=== PATIENT | male | born 1960 | race Caucasian/White ===

== ENCOUNTER 2019-06-24 08:20 | Emergency (ER) | payer MEDICARE, MEDICAID, SELFPAY ==
[2019-06-24 08:36] VITALS: BP 170/108; PULSE 80; RESP 18; TEMP 36.8; O2SAT 94; BMI 24.3
--- NOTE | 2019-06-24 08:36 | ED_ITS ---
Entered by Naty Kruse, acting as scribe for HPI - Extremity Injury (Upper) General: Chief Complaint: Extremity Injury, Upper Stated Complaint: Left arm pain Time Seen by Provider: 06/24/19 08:34 Source: patient and family Mode of arrival: ambulatory Limitations: no limitations History of Present Illness: HPI narrative: 59 yo male presents with L arm swelling post fall 1 month ago. pt has had pain in the L elbow with movement. pt denies any other symptoms at this time or injury. MD complaint: injury to: left Onset (ago): month(s) (1 month ago post fall) Other Extremity Injury: Left: elbow and arm Other injuries: none Place: home Severity: moderate Relieving factors: none Exacerbating factors: movement of extremity Context: fall Review of Systems Const: Denies: fever or chills Eyes: Denies: change in vision ENMT: Denies: throat pain or mouth pain Card: Denies: chest pain Resp: Denies: shortness of breath GI: Denies: abdominal pain, nausea, vomiting or diarrhea Musc: Reports: joint pain and joint swelling; Denies: back pain Skin/Breast: Denies: rash Neuro: Denies: headache or behavioral changes Psych: Denies: depression Endo: Denies: excessive urination Michael/Lymph: Denies: easy bruising All/Imm: Denies: hives PFSH ED PFSH: Statuses (acute, chronic, etc) shown below reflect problem list status as previously entered and may not be historically accurate Social History Smoking and tobacco status: current every day smoker Physical Exam Const: COMMON NORMALS: no apparent distress and healthy appearing HENMT: COMMON NORMALS: normocephalic and external nose normal HEAD & SCALP: normocephalic NOSE: external nose normal and no nasal discharge (nasal dischage) Eye: COMMON NORMALS: PERRL PUPIL: Yes PERRL Neck/C-Spine: COMMON NORMALS: full ROM and no lymphadenopathy Chest: COMMONS NORMALS: inspection of chest normal Resp: COMMON NORMALS: normal respiratory effort and clear to auscultation bilaterally AUSCULTATION: clear to auscultation bilaterally Cardio: COMMON NORMALS: regular rate and regular rhythm RATE: regular rate RHYTHM: regular rhythm GI: COMMON NORMALS: soft to palpation PALPATION: Yes soft Extremity: COMMON NORMALS: full ROM and normal capillary refill NARRATIVE EXTREMITY EXAM: Swelling to left olecranon with no tenderness or warmth to touch Psych: COMMON NORMALS: mental status grossly normal and cooperative Skin: COMMON NORMALS: no rashes or lesions noted GENERAL SKIN EXAM: no rashes or lesions noted Course Vital Signs: Vital signs: Vital Signs Temperature 98.2 F 06/24/19 08:36 Pulse Rate 75 06/24/19 08:50 Respiratory Rate 18 06/24/19 08:36 Blood Pressure 170/108 06/24/19 08:36 Pulse Oximetry 94 06/24/19 08:36 MDM - Extremity Injury (Upper) MDM Narrative: Medical decision making narrative: Patient presents here with swelling to elbow joint with no tenderness or warmth to touch. Patient has full range of motion. Will Jeremy wrap and he is to follow-up with orthopedics. He is to return if worsening. Discharge Plan Discharge Patient Disposition: Home, Self-Care Clinical Impression: Elbow pain, left Condition: Stable Prescriptions: No Action naproxen 500 mg PO PRN RF: 0 Discharge Orders: Discharge Order (Routine); Ordered 06/24/19 Ordered By: Sohan Jaffe Referrals: Ashtyn York, SCHEDULING AGENT-C [Primary Care Provider] - Judy Aguirre MD [Physician] - Discharge Diet: Advance as tolerated Discharge Activity: Resume usual activity Coding Level of Care Code ED Clinical Safety Specialist for Chg Fwd The documentation recorded by the Uriah tolbert Bridget Annette, accurately reflects the service I personally performed and the decisions made by Alannah ortiz Korby, MD Jun 24, 2019 08:20
--- NOTE | 2019-06-24 08:36 | XRR_ITS ---
PROCEDURE INFORMATION: Exam: XR Left Elbow Exam date and time: 06/24/2019 8:37 AM Age: 59 years old Clinical indication: Pain; Elbow; Left; Patient HX: Swollen; Additional info: Injury TECHNIQUE: Imaging protocol: XR Left elbow. Views: 3 or more views. COMPARISON: No relevant prior studies available. FINDINGS: Bones/joints: There are mild degenerative changes at the humeral ulnar joint. There is no evidence of acute fracture or dislocation. Soft tissues: There is mild posterior olecranon soft tissue swelling. No radiopaque foreign body identified. No significant elbow joint effusion. XR/XR elbow LT min 3V* [id number] IMPRESSION: 1. No acute osseous findings. 2. Posterior olecranon soft tissue swelling without evidence of radiopaque foreign body. Findings are nonspecific and can be associated with bursitis, contusion or nonspecific edema. 3. Mild humeral ulnar degenerative change.
--- NOTE | 2019-06-24 08:48 | PC.NURSE ---
L elbow fall 1 month ago, elbow continues to swell. Pain with heavy lifting
[2019-06-24 08:50] VITALS: PULSE 75
[2019-06-24 09:05] VITALS: PULSE 79
[2019-06-24 09:10] VITALS: BP 123/98; PULSE 83; RESP 16; TEMP 36.6
--- NOTE | 2019-06-25 13:25 | DCPLANNER ---
manager meat had message to schedule a follow up appointment for patient with ortho. manager meat called the ortho clinic, spoke with Pat, gave clinic patients information. manager meat was told that patients information would be printed off and reviewed. Clinic will call case packer and sealer and patient with appointment information.
--- NOTE | 2019-06-26 10:57 | DCPLANNER ---
Pat from ortho called, informing employment evaluator/case manager that patient will need to follow up with primary care and patient is aware of this.
== END 2019-06-24 09:20 | disposition home or self-care (01) ==
PROVIDERS: Emergency Provider Emergency Medicine; Family Provider Nurse Practitioner; PCP Nurse Practitioner
DX: M25.522 Pain in left elbow (principal); F17.210 Nicotine dependence, cigarettes, uncomplicated
CPT/HCPCS: 73080; 99281

== ENCOUNTER → 2019-10-08 00:01 | Outpatient (BNVA) | payer MEDICARE, MEDICAID, SELFPAY | PROVIDERS: Family Provider Nurse Practitioner; PCP Family Medicine; Visit Provider Family Medicine | DX: M25.529 Pain in unspecified elbow (principal) | CPT/HCPCS: 84550 ==

== ENCOUNTER → 2019-10-31 09:56 | Outpatient (BNVA) | payer MEDICARE, MEDICAID, SELFPAY | PROVIDERS: Family Provider Nurse Practitioner; PCP Family Medicine; Visit Provider Orthopaedic Surgery | DX: M71.322 Other bursal cyst, left elbow (principal) | CPT/HCPCS: 73080 ==

== ENCOUNTER 2019-11-22 07:59 | Day surgery (SDC) | payer MEDICARE, MEDICAID, SELFPAY ==
[2019-11-21 12:13] VITALS: BMI 24.3
[2019-11-22] VITALS (8 sets, daily range): BP systolic 141–166; BP diastolic 96–117; PULSE 68–88; RESP 14–21; TEMP 36.5–36.7; O2SAT 92–99
--- NOTE | 2019-11-22 07:05 | P.OP_ITS ---
Operative Report Date of procedure: November 22, 2019 Pre-op Diagnosis: Left olecranon bursitis Post-op diagnosis: same Procedure Done: Resection left Olecranon bursa x 2 Specimens removed/disposition: Left olecranon bursa x 2 ( 1 larger and 1 smaller) Surgeon: Jones Sow Anesthesia: General Estimated blood loss (mL): 5 Tourniquet time (min): 40 (at 250 mmHg pressure) Complications: none Findings: during surgery we discovered the patient had one large noncommunicating olecran bursas Condition: stable Disposition: PACU Brief History: 59-year-old white male with persistent swelling and discomfort from a large left olecranon bursa. He was seen in the office and he wanted to have the bursa resected. X-rays showed no significant underlying bony spurring of the olecranon process of the affected elbow. Risks of surgery include aren't limited to recurrence of the bursitis, possible buttonholing through the skin as to excise the bursa. There can be wound healing complications such as development of a hematoma. To try to eliminate the possibility of a hematoma we will place a drain in his wound during the surgical procedure have him follow-up in the office after surgery to remove the drain and perform wound care. Morillo can include nerve/blood vessel/tendon injury. Medical complications can include infection, blood clots, heart attack, stroke risk up to including . All questions were answered patient agreeable to proceed with surgery. Procedure: 1.5 g Zinacef Patient identified. Surgical site was signed. Surgical permit was signed. The patient received 1.5 g of Zinacef intravenously for surgical prophylaxis. He was taken to the operating room. His placed supine on the operating room table. His placed under general anesthesia without difficulty. He was then sterilely prepped and draped usual fashion. A sterile tourniquet was applied. A timeout was performed. The operative limb was exsanguinated using Esmarch bandage tourniquet inflated to 250 mmHg pressure. I made an incision along the subcutaneousborder of the underlying proximal ulna and course the incision radially over the tip of the olecranon and then parotid longitudinally along the midline of the lower arm with a skin knife. With a second knife we then began to shell out the underlying olecranon bursa. Were able to excise the large bursa. Is then noted the patient had a smaller bursa distal to the larger bursa. This was excised using a second knife and is able to resect this off the underlying soft tissue. No bony spurring of the olecranon was noted intraoperatively. None had been noted on preoperative x-rays. Incision was irrigated with Betadine-containing saline solution and antibiotic containing saline solution. The skin was closed in layers with tiago on skin and replaced a Sherwood drain into the wound to allow drainage postoperatively to prevent hematoma. The incision was injected with 10 mL of a one-to-one mixture 1% lidocaine half percent Marcaine. Antibiotic was applied to the incision line followed by sterile dressings. The patient is placed in a elbow splint with the elbow at 90?. Once dressings were applied the tourniquet was deflated. The patient was aroused from general anesthesia. He was taken to recovery room. He tolerated surgery well. All counts were correct.
--- NOTE | 2019-11-22 07:07 | P.HPUD_ITS ---
Surgery/Procedure H&P Update DATE OF PROCEDURE: November 22, 2019 DATE H&P PERFORMED: 10/31/19 H&P UPDATE INFORMATION: I have reviewed H&P completed within last 30 days, I have examined patient prior to procedure, No changes to prior documentation and H&P is in [facility] EMR on date indicated PREOP DIAGNOSIS: Left olecranon bursitis PRIMARY INDICATION FOR PROCEDURE: symptomatic bursa PLANNED PROCEDURE: Operation Date: 11/22/19 09:40 Proposed Procedures p Excision of left elbow mass 65980 M71.322(Left) - Jones Sow DO
[2019-11-22] MEDS: sodium chloride 0.9% 1,000 ML 30 ML IV (08:21)
[2019-11-22] MEDS: ketorolac 30 mg/mL INJ IVP (08:26)
--- NOTE | 2019-11-22 08:39 | ANES.PREANE2 ---
Pre-Anesthetic Assessment Pre-Anesthetic Assessment: Height/Weight: Height 1.75 m Weight 74.843 kg Temp Pulse Resp BP Pulse Ox 97.7 F 82 18 157/105 94 11/22/19 08:12 11/22/19 08:12 11/22/19 08:12 11/22/19 08:12 11/22/19 08:12 Preop Diagnosis: left olecranon bursitis Proposed Procedure: Operation Date: 11/22/19 09:40 Proposed Procedures p Excision of left elbow mass 93111 M71.322(Left) - Jones Sow DO Last intake: Intake Last Liquid Date 11/22/19 Last Liquid Time 05:00 Last Solid Date 11/21/19 Last Solid Time 22:00 Social: Social History: Tobacco and No alcohol Exam: Pre-Anes Outpt Exam: alert, oriented x 3, clear to auscultation bilaterally and regular rate & rhythm Airway: Submandibular: WNL Cervical ROM: WNL MP: 1 Dentition: False (upper and lower) History/ROS: No significant history except as noted Pulmonary: Pulmonary: COPD and None reported CV/HEM: CV/HEM: None reported : : None reported Hepatic: Hepatic: None reported GI: GI: None reported Metabolic: Metabolic: None reported Musc/skel: Musc/skel: OA/DJD Neuropsych: Neuropsych: None reported Anesthetic Plan: ASA status: 2 Anesthesia: Anesthesia Evaluation, General and MAC Risk of > 500 ml blood loss (7ml/kg in children): No Meds/Allergies Current Medications: Current Medications Generic Name Dose Route Start Last Admin Trade Name Freq PRN Reason Stop Dose Admin Sodium Chloride 1,000 mls @ 30 ml s/hr 11/22/19 07:45 11/22/19 08:21 Sodium Chloride 0.9% IV 11/23/19 07:44 30 mls/hr .Q24H ARIANNE Administration PFSH Anesthesia PFSH: Medical History COPD (chronic obstructive pulmonary disease) with acute bronchitis Osteoarthritis of right shoulder Osteoarthritis of spine Pulmonary emphysema Seasonal allergic rhinitis Social History Smoking and tobacco status: current every day smoker cigarettes Packs smoked per day: 1 Alcohol intake: current Desire information about alcohol rehabilitation?: No Lives independently: Yes Household members: family Marital status: History of recent travel: No Data Anesthesia Cardiac Studies: No Data to Display
[2019-11-22] MEDS: cefUROXime 1,500 MG in sodium chloride 0.9% (plus) 50 ML 100 MG IV (09:00)
[2019-11-22] MEDS: neomycin-poly-bacitracin oint 28 gm 1 APPLIC TOPICAL (09:51)
[2019-11-22] MEDS: oxyCODONE-APAP 5-325 mg Tablet 1 TAB PO (11:06)
== END 2019-11-22 11:12 | disposition home or self-care (01) ==
PROVIDERS: PCP Family Medicine; Visit Provider Orthopaedic Surgery
PROC: (CPT 24105; principal; 2019-11-22 09:30)
DX: M71.322 Other bursal cyst, left elbow (principal); J44.9 Chronic obstructive pulmonary disease, unspecified; M19.011 Primary osteoarthritis, right shoulder; F17.210 Nicotine dependence, cigarettes, uncomplicated
CPT/HCPCS: 24105; 12345; 88304; 96365; 96374; J0131; J0697; J1580; J1885; J2001; J2704; J3010; J3490; J7030

== ENCOUNTER → 2020-07-07 11:26 | Outpatient (BNVA) | payer MEDICARE, MEDICAID, SELFPAY | PROVIDERS: PCP Family Medicine; Visit Provider Family Medicine | DX: M47.24 Other spondylosis with radiculopathy, thoracic region (principal); J44.0 Chronic obstructive pulmonary disease with (acute) lower respiratory infection; Z23 Encounter for immunization; J20.9 Acute bronchitis, unspecified; Z68.24 Body mass index [BMI] 24.0-24.9, adult; F17.210 Nicotine dependence, cigarettes, uncomplicated; Z71.89 Other specified counseling; Z13.29 Encounter for screening for other suspected endocrine disorder | CPT/HCPCS: 80053; 84443; 85025 ==

== ENCOUNTER → 2021-12-29 17:58 | Outpatient (BNVA) | payer MEDICARE, MEDICAID, SELFPAY | PROVIDERS: PCP Family Medicine; Visit Provider Family Medicine | DX: M19.011 Primary osteoarthritis, right shoulder (principal); J30.2 Other seasonal allergic rhinitis; M47.9 Spondylosis, unspecified; M25.512 Pain in left shoulder; J44.0 Chronic obstructive pulmonary disease with (acute) lower respiratory infection; J20.9 Acute bronchitis, unspecified; M19.90 Unspecified osteoarthritis, unspecified site | CPT/HCPCS: 73030 ==

== ENCOUNTER 2022-02-01 08:06 | Outpatient (CLI) | payer MEDICARE, MEDICAID, SELFPAY ==
--- NOTE | 2022-02-01 08:45 | MR_ITS ---
WS: [id number] MRI LEFT SHOULDER NONCONTRAST TECHNIQUE: Sagittal T2, coronal T1, T2 and proton density imaging. Axial gradient PDE imaging. CLINICAL INFORMATION: M25.512 - Pain in left shoulder COMPARISON: None. FINDINGS: Moderate degenerative arthritis AC joint with mild edema. Mild downsloping acromion. Mild narrowing o f the subacromial space. Normal supraspinatus. Insertional tear at the distal infraspinatus insertion . Infraspinatus is otherwise normal. Normal teres minor and subscapularis. Tendinopathy in the distal subscapularis. Medial subluxation of the biceps tendon from the bicipital groove proximally. Normal intra-articular biceps tendon. Normal biceps labral anchor. Glenoid labrum appears grossly normal. MR/MR shoulder LT wo con* [id number] IMPRESSION: 1. Moderate degenerative arthritis AC joint with mild edema. 2. Small insertional tear at the distal infraspinatus insertion. Tendinopathy within the subscapularis. Rotator cuff is otherwise normal. 3. Slight medial subluxation of the biceps tendon in the bicipital groove prox imally. Intra-articular biceps tendon appears intact. 4. No other acute findings.
== END 2022-02-01 08:07 | disposition home or self-care (01) ==
LOC: RAD 08:07
PROVIDERS: PCP Family Medicine; Visit Provider Family Medicine
DX: M19.012 Primary osteoarthritis, left shoulder (principal)
CPT/HCPCS: 73221

== ENCOUNTER → 2022-02-17 07:44 | Outpatient (BNVA) | payer MEDICARE, MEDICAID, SELFPAY | PROVIDERS: PCP Family Medicine; Referring Provider Family Medicine; Visit Provider Orthopaedic Surgery | DX: M75.112 Incomplete rotator cuff tear or rupture of left shoulder, not specified as traumatic (principal) | CPT/HCPCS: 99203; 99204 ==

== ENCOUNTER → 2022-11-02 13:32 | Outpatient (BNVA) | payer MEDICARE, MEDICAID, SELFPAY | PROVIDERS: PCP Family Medicine; Visit Provider Internal Medicine | DX: R07.9 Chest pain, unspecified (principal); R00.2 Palpitations | CPT/HCPCS: 93005; 93225; 99204 ==

== ENCOUNTER → 2023-10-26 10:08 | Outpatient (BNVA) | payer MEDICARE, MEDICAID, SELFPAY | PROVIDERS: PCP Family Medicine; Visit Provider Nurse Practitioner Family | DX: R05.9 Cough, unspecified (principal); I10 Essential (primary) hypertension | CPT/HCPCS: 71046; 80053; 80061; 82607; 84443; 85025 ==

== ENCOUNTER → 2023-11-21 09:09 | Outpatient (BNVA) | payer MEDICARE, MEDICAID, SELFPAY | PROVIDERS: PCP Family Medicine; Visit Provider Nurse Practitioner Family | DX: D75.1 Secondary polycythemia (principal) | CPT/HCPCS: 85025 ==

== ENCOUNTER 2023-11-22 09:00 | Outpatient (CLI) | payer MEDICARE, MEDICAID, SELFPAY | END 2023-11-22 09:01 | disposition home or self-care (01) | LOC: SLEEP 11:44 | PROVIDERS: PCP Family Medicine; Visit Provider Nurse Practitioner Family | DX: J44.9 Chronic obstructive pulmonary disease, unspecified (principal) | CPT/HCPCS: 94762 ==

== ENCOUNTER → 2024-01-03 09:25 | Outpatient (BNVA) | payer MEDICARE, MEDICAID, SELFPAY | PROVIDERS: PCP Family Medicine; Visit Provider Nurse Practitioner Family | DX: D75.1 Secondary polycythemia (principal) | CPT/HCPCS: 85025 ==

== ENCOUNTER 2024-01-27 08:30 | Oncology outpatient (recurring) (ONCR) | payer MEDICARE, MEDICAID, SELFPAY ==
[2024-01-25 16:32] LABS: Basophils # 0.1 10^3/uL (0.0-0.1); Basophils % 0.8 %; Eosinophils # 0.3 10^3/uL (0.0-0.8); Eosinophils % 2.7 %; Hematocrit 55.5 % (37-53); Lymphocytes # 2.7 10^3/uL (0.8-4.8); Lymphocytes % 25.8 %; Mean Corpuscular Hemoglobin 31.4 pg (27-33); Mean Corpuscular Volume 95.2 fl (82-101); Mean Platelet Volume 11.3 fL (7.4-10.4); Monocytes # 0.8 10^3/uL (0.2-0.9); Monocytes % 7.7 %; Neutrophils # 6.54 10^3/uL (1.8-7.7); Neutrophils % 62.6 %; Nucleated Red Blood Cells % 0 %; Platelet Count 227 10^3/cmm (157-399); Red Blood Count 5.83 10^6/uL (3.85-5.65); Red Cell Distribution Width 13.6 % (12.1-15.1); White Blood Count 10.43 10^3/uL (3.29-11.43)
[2024-01-25 16:53] LABS: Alanine Aminotransferase 13 U/L (0-41); Albumin Level 4.4 g/dL (3.5-5.2); Alkaline Phosphatase 127 U/L (40-130); Anion Gap 16.5 (5-19); Aspartate Amino Transferase 12 U/L (0-40); Blood Urea Nitrogen 10 mg/dL (8-23); Calcium 9.8 mg/dL (8.5-10.5); Carbon Dioxide 28 mmol/L (22-29); Chloride 101 mmol/L (98-107); Globulin 3.4 g/dL (1.3-4.6); Glomerular Filtration Rate 75.5 mL/min (90-130); Glucose 100 mg/dL (65-115); Lactate Dehydrogenase 154 U/L (135-225); Osmolality Calculated 291 mOsm/kg (285-295); Potassium 4.5 mmol/L (3.5-5.1); Sodium 141 mmol/L (136-145); Total Bilirubin 0.3 mg/dL (0.15-1.2); Total Protein 7.8 g/dL (6.6-8.7)
[2024-01-27 08:40] VITALS: BP 151/97; PULSE 87; RESP 16; TEMP 36.6; O2SAT 95
[2024-01-27 09:15] VITALS: BP 127/88; PULSE 90; RESP 16; TEMP 36.6; O2SAT 95
[2024-01-30 10:43] LABS: Erythropoietin 19.1 mIU/mL (2.6-18.5)
[2024-02-10 13:42] LABS: JAK2 V617 Specimen Source BLOOD
[2024-02-10 13:44] LABS: Specimen Source EDTA BLOOD
[2024-02-10 13:45] LABS: JAK2 V617 Mutation NOT DETECTED
[2024-02-10 13:51] LABS: JAK2 Exon 12 Mutation NOT DETECTED
== END 2024-02-18 23:55 | disposition home or self-care (01) ==
PROVIDERS: PCP Family Medicine; Visit Provider Internal Medicine Medical Oncology
DX: Z53.9 Procedure and treatment not carried out, unspecified reason (principal); D75.1 Secondary polycythemia; Z79.899 Other long term (current) drug therapy
CPT/HCPCS: 36415; 80053; 81270; 81279; 82668; 83615; 85025; 99195; 99205

== ENCOUNTER → 2024-05-28 13:15 | Outpatient (BNVA) | payer MEDICARE, MEDICAID, SELFPAY | PROVIDERS: Visit Provider Nurse Practitioner Family | DX: R20.2 Paresthesia of skin (principal); D75.1 Secondary polycythemia | CPT/HCPCS: 80053; 82607; 83735; 85025 ==

== ENCOUNTER 2024-06-04 11:09 | Oncology outpatient (recurring) (ONCR) | payer MEDICARE, MEDICAID, SELFPAY ==
[2024-06-04 12:12] VITALS: BP 158/92; PULSE 90; RESP 17; TEMP 36.6; O2SAT 94
== END 2024-06-19 23:59 | disposition home or self-care (01) ==
PROVIDERS: Visit Provider Internal Medicine Medical Oncology
DX: D75.1 Secondary polycythemia (principal); Z79.899 Other long term (current) drug therapy; F17.210 Nicotine dependence, cigarettes, uncomplicated
CPT/HCPCS: 99195; 99213

== ENCOUNTER 2025-01-26 09:30 | Inpatient (IN) | payer MEDICARE, MEDICAID, SELFPAY ==
[2025-01-26] VITALS (16 sets, daily range): BP systolic 143–180; BP diastolic 82–108; PULSE 78–105; RESP 16–30; TEMP 36.8; O2SAT 78–98; BMI 25.8
--- NOTE | 2025-01-26 09:32 | ECG_ITS ---
[facility] [employer] Test Date: 2025-01-26 Pat Name: Eligio Resendiz Department: Room: Gender: Male Table Tender: : 1960 Requested By: Trenton Wan Order Number: [id number] Desai MD: LARRY ISIDRO Measurements Intervals [place] Rate: 100 P: 70 FL: 124 QRS: 76 QRSD: 93 T: 94 QT: 315 QTc: 407 Interpretive Statements SINUS TACHYCARDIA POSSIBLE RIGHT ATRIAL ENLARGEMENT [0.25mV P-WAVE] LEFT ATRIAL ENLARGEMENT [-0.15mV P-WAVE IN V1/V2] Compared to ECG 11/02/2022 13:37:48 Sinus rhythm no longer present Electronically Signed On 01-29-2025 20:07:56 CDT by LARRY ISIDRO [email or web address]
--- OUTSIDE RECORDS SUMMARY | 2025-01-26 09:39 | XMS_ITS | Patient Health Record ---
Author Organization [facility] Address [address] [place], [place] [id number] Care Team Providers Care Staff Air Defense Officer Name Role Phone Ashtyn York APN Primary Care Provider Tadeo Worrell MD, [facility] [phone] Reason For Referral No Information Medications Medication SIG (Take, Route, Frequency, Duration) Notes Start Date End Date Status acetaminophen-hydrocodone Bitartrate 325 mg-7.5 mg 1 tab po orally BID prn pain Active gabapentin 300 mg 1 cap po orally QHS Active naproxen 500 mg 1 tab po orally BID prn pain; take with food Active acetaminophen-hydrocodone Bitartrate 325 mg-7.5 mg 1 tab po orally BID prn pain; Duration: 30 day(s) 11/15/2013 Active naproxen 500 mg 1 tab po orally BID prn pain; take with food; Duration: 30 day(s) Active Social History Tobacco Use: Social History Observation Description Date Details (start date - stop date) Current Smoker NA - NA Tobacco use: Question Answer Notes : current smoker Are you interested in quitting? Thinking about q uitting How many cigarettes a day do you smoke? 11-20 How often do you smoke cigarettes? every day How soon after you wake up d o you smoke your first cigarette? 6-30 min Problems Problem Type SNOMED Code ICD Code Onset Dates Problem Status W/U Status Risk Notes Problem Spasm (63857662) Muscle spasm (728.85) Active confirmed Problem Hypersomnia (50251074) Hypersomnia (780.54) Active confirmed Problem Closed fracture of lumbar vertebra without spinal cord injury (805.4) Active confirmed Problem Low back pain (666692995) Low back pain (724.2) Active confirmed Problem Displacement of lumbar intervertebral disc without myelopathy (26233434) Lumbar (w/out myelopathy) intervertebral disc disorder (722.10) Active confirmed Problem Spondylolisthesis (820569775) Spondylolisthesis (756.12) Active confirmed Problem Long-term drug therapy (993051700) LONG-TERM USE MEDS NEC (V58.69) Active confirmed r/o substance abuse Problem Lumbosacral spondylosis without myelopathy (52964778) Lumbosacral spondylosis without myelopathy (721.3) Active confirmed Plan Of Treatment No Information Insurance Providers Payer Name Payer Address Payer Phone Subscriber Number Group Number Insured Name Patient Relationship to Insured Coverage Start Date Coverage End Date [employer] Medicare Part B Claims Department [address] [address] [place] [address] [id number] Eligio Resendiz Self - patient is the insured [place] [address] [place] [address] [id number] Eligio Resendiz Self - patient is the insured Medical (General) History Medical History History ICD Code Rib pain, left Neck pain Right shoulder pain Low back pain Surgical History Surgery Date(Month/Year) Cervical fusion, C6-C7 10/08/1999 Hospitalization History Reason Date(Month/Year)
--- OUTSIDE RECORDS SUMMARY | 2025-01-26 09:39 | XMS_ITS | Clinical Summary ---
Author Organization [facility] Address [address] [place] [address] Phone Care Team Providers Care Guide Alpine Name Role Phone Unavailable Primary Care Provider Unavailabl e Allergies No known active allergies Medications PIROXICAM 20 mg Oral Cap Take 20 mg by mouth 3 times daily. Active CYCLOBENZAPRIN E 10 mg Oral Tab Take 10 mg by mouth see administration instructions. 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 Gender Identity Not on file Sexual Orientation Not on file Last Filed Vital Signs Vital Sign Reading Time Taken Comments Blood Pressure 139/82 10/01/2008 2:23 PM CDT Pulse 82 10/01/2008 2:23 PM CDT Temperature - - Respiratory Rate 24 10/01/2008 2:23 PM CDT Oxygen Saturation 95% 10/01/2008 2:23 PM CDT Inhaled Oxygen Concentration - - Weight 75.3 kg (166 lb) 10/01/2008 2:23 PM CDT Height 172.7 cm (5' 8 ) 10/01/2008 2:23 PM CDT Body Mass Index 25.24 10/01/2008 2:23 PM CDT Plan of Treatment Health Maintenance Due Date Last Done Comments DTAP/TDAP/TD VACCINES (1 - Tdap) 02/16/1979 COLORECTAL SCREENING 02/16/2005 Colorectal Cancer Screening 02/16/2005 FIT-DNA Q 3 years 02/16/2005 FIT/FOBT Q 1 year 02/16/2005 Flex Sig/CT Colonography Q 5 years 02/16/2005 ZOSTER VACCINE (1 of 2) 02/16/2010 INFLUENZA VACCINE (#1) 2025 RSV VACCINE (60+ or ) (1 - 1-dose 75+ series) 02/16/2035
--- NOTE | 2025-01-26 09:48 | XRR_ITS ---
PROCEDURE INFORMATION: Exam: XR Chest Exam date and time: 01/26/2025 9:54 AM Age: 64 years old Clinical indication: Shortness of breath; SOB; Labored breathing TECHNIQUE: Imaging protocol: Radiologic exam of the chest. Views: 1 view. COMPARISON: CR XR chest 2V* [id number] 10/26/2023 10:12 AM FINDINGS: Lungs: Pulmonary vessels are within normal limits. Right upper lung field calcified granuloma. Left lung is clear. Hyperinflation of both lung lara. Pleural spaces: No pneumothorax. Heart/Mediastinum: Cardiomediastinal silhouette is within normal limits. Bones/joints: Unremarkable. XR/XR chest 1V portable [id number] IMPRESSION: 1. No acute pulmonary finding. 2. Hyperinflation of both lung lara.
--- NOTE | 2025-01-26 09:53 | ED_ITS ---
HPI - Chest Pain 2 General: Chief Complaint: Chest Pain Stated Complaint: SOB CP Time Seen by Provider: 01/26/25 09:32 History of Present Illness: HPI: Patient with history of COPD on 2 and half liters at home all the time, presenting to the emergency department for worsening shortness of breath and chest pressure over the last week. Patient states that he is avoid coming to the doctor because he has to take care of his handicapped girlfriend at home. Describes shortness of breath is worsening throughout the night last night and this morning could not. He more so came into the emergency department. No fevers, sweats, chills. Patient has been seen last week for this and prescribed prednisone and an antibiotic (believes doxycycline is the name). REVIEW OF SYSTEMS: 10 systems reviewed and otherwise unrema rkable except for those noted in HPI. PHYSCIAL EXAM: Triage vital signs reviewed Gen: A&O NAD HEENT: NCAT, EOMI, not icteric. External ears normal. No rhinorrhea. Moist mucous membranes. Neck: Supple, full range of motion, no observable masses, No meningeal sign. Lungs: Conversational dyspnea to 2 words. Retractions, using supracostal muscles to breathe. Controlling secretions. Diminished breath sounds bilaterally. CV: Tachycardic, no edema. Patient has a run of multifocal atrial tachycardia in the room at a rate of 110 Abdomen: Soft, nondistended, No rebound tenderness. MSK: No joint swelling, no redness. Skin: No rashes, petechiae, lesions. Normal color per patient. Neuro: Normal Gait, Grossly intact. Psych: Appropriate for situation. PROCEDURES: EKG: Rate: Tachycardic Rhythm: Sinus Cable: Normal variant Intervals: Normal Ischemia: No STEMI criteria Related Data Home Medications ?Medication ?Instructions ?Recorded ?Confirmed doxycycline hyclate 100 mg capsule 100 mg PO BID 01/2601/26/25 prednisone 20 mg tablet 40 mg PO QAM 01/26/25 tiotropium bromide 2.5 2 puff inhalation DAILY PRN 01/26/25 01/26/25 mcg/actuation mist for inhalation Shortness Of Breath (Spiriva Respimat) Previous Rx's ?Medication ?Instructions ?Recorded aspirin 325 mg tablet 325 mg PO DAILY #90 tabs 05/12 oxygen 2L via NC with activity #1 ea 10/26/23 albuterol sulfate 90 mcg/actuation 2 inh inhalation Q6 H PRN shortness 05/16/24 aerosol inhaler of breath or wheezing #8.5 g bernard Allergies Allergy/AdvReac Type Severity Reaction Status Date / Time grass pollen Allergy Severe ALGY-Hives Verified 08/15/24 13:58 corn Allergy ALGY-Difficulty Verified 08/15/24 13:58 Breathing PFSH ED 2 PFSH: Medical History (Updated 01/26/25 @ 12:52 by Trenton Wan MD) COPD (chronic obstructive pulmonary disease) Enrolled in chronic care management Pulmonary emphysema Seasonal allergic rhinitis Osteoarthritis of right shoulder COPD (chronic obstructive pulmonary disease) with acute bronchitis Osteoarthritis of spine Surgical History Hx of cervical spine surgery Family History Father Heart disease Mother Heart disease Brother Heart disease Brother Renal cancer Social History Smoking and tobacco/nicotine status: never used tobacco/nicotine Second hand smoke exposure: Yes Alcohol intake: current Alcohol type: beer Substance/Drug Use: never Lives independently: Yes Household members: family Marital status: Current gender identity: Male Course 2 Vital Signs: Vital signs: Vital Signs Pulse Rate 82 01/26/25 13:04 Respiratory Rate 18 01/26/25 12:58 Blood Pressure 180/107 01/26/25 12:38 Pulse Oximetry 78 L 01/26/25 13:05 Oxygen Delivery Me thod Oxymask 01/26/25 12:58 Oxygen Flow Rate 6 01/26/25 13:05 MDM - Chest Pain Medical Decision Making MEDICAL DECISION MAKING: Differential diagnoses considered but not limited to: COPD exacerbation, ACS, pneumonia, pneumothorax, vascular TASV, compensatory tachypnea for systemic infection. Vitals nonactionable. Given history, examination, and pretest risk factors, patient already taking oral prednisone outpatient setting. Gave patient 125 Solu-Medrol and a DuoNeb in the emergency department while continuing evaluation. Initial EKG nonischemic. Patient is having runs of multifocal atrial tachycardia in the room and then normalizes to sinus rhythm with a rate less than 100. Maintaining rates in 90s. Provide 1 L fluid bolus. No previous ACS history but moderate risk by historical features. Pending cardiac rule out. Cardiac rule out completed with nonischemic EKGs done serially in the department and negative delta troponin. Patient failed ambulatory pulse oximetry at home oxygen requiring increasing to 6 L from his baseline 2.5 L. Will admit the patient to the hospitalist for further resuscitation and treatment. DISPO: Admit hospitalist Trenton Wan MD Staff physician, [facility] [place] Emergency Department [phone] Lab Data 01/26/25 09:35 01/26/25 09:35 Radiology Impressions Chest X-Ray 01/26/25 09:48 IMPRESSION: 1. No acute pulmonary finding. 2. Hyperinflation of both lung lara. Laboratory Results WBC 19.55 10^3/uL (3.29-11.43) H 01/26/25 09:35 RBC 5.71 10^6/uL (3.85-5.65) H 01/26/25 09:35 Hgb 18.10 g/dL (11.27-16.99) H 01/26/25 09:35 Hct 54.6 % (37-53) H 01/26/25 09:35 MCV 95.6 fl (82-101) 01/26/25 09:35 MCH 31.7 pg (27-33) 01/26/25 09:35 MCHC 33.2 g/dL (30-55) 01/26/25 09:35 RDW 14.3 % (12.1-15.1) 01/26/25 09:35 Plt Count 302 10^3/cmm (157-399) 01/26/25 09:35 MPV 11.3 fL (7.4-10.4) H 01/26/25 09:35 Neut % (Auto) 86.9 % 01/26/25 09:35 Lymph % (Auto) 7.8 % 01/26/25 09:35 Barton % (Auto) 3.2 % 01/26/25 09:35 Eos % (Auto) 0.0 % 01/26/25 09:35 Baso % (Auto) 0.5 % 01/26/25 09:35 Neut # (Auto) 16.99 10^3/uL (1.8-7.7) H 01/26/25 09:35 Lymph # (Auto) 1.5 10^3/uL (0.8-4.8) 01/26/25 09:35 Barton # (Auto) 0.6 10^3/uL (0.2-0.9) 01/26/25 09:35 Eos # (Auto) 0.0 10^3/uL (0.0-0.8) 01/26/25 09:35 Baso # (Auto) 0.1 10^3/uL (0.0-0.1) 01/26/25 09:35 Nucleated RBC % (auto) 0 % 01/26/25 09:35 Nucleated RBCs # 0.0 /100WBC 01/26/25 09:35 Sodium 146 mmol/L (136-145) H 01/26/25 09:35 Potassium 4.3 mmol/L (3.5-5.1) 01/26/25 09:35 Chloride 101 mmol/L (98-107) 01/26/25 09:35 Carbon Dioxide 33 mmol/L (22-29) H 01/26/25 09:35 Anion Gap 16.3 (5-19) 01/26/25 09:35 BUN 13 mg/dL (8-23) 01/26/25 09:35 Creatinine 0.8 mg/dL (0.7-1.2) 01/26/25 09:35 GFR Calculation 97.3 mL/min (90-130) 01/26/25 09:35 Glucose 155 mg/dL (65-115) H 01/26/25 09:35 Calculated Osmolality 305 mOsm/kg (285-295) H 01/26/25 09:35 Lactic Acid 1.4 mmol/L (0.5-2.2) 01/26/25 11:34 Calcium 9.8 mg/dL (8.5-10.5) 01/26/25 09:35 Total Bilirubin 0.3 mg/dL (0.15-1.2) 01/26/25 09:35 AST 9 U/L (0-40) 01/26/25 09:35 ALT 9 U/L (0-41) 01/26/25 09:35 Alkaline Phosphatase 130 U/L (40-130) 01/26/25 09:35 Troponin T Baseline 17 ng/L (0-15) H 01/26/25 09:35 Troponin T 120 Minute 15.80 ng/L (0-15) H 01/26/25 11:34 Delta Troponin T -1.20 ABS# (0-10) L 01/26/25 11:34 NT-Pro-B Natriuret Pep 390 pg/mL (0-125) H 01/26/25 09:35 Total Protein 7.0 g/dL (6.6-8.7) 01/26/25 09:35 Albumin 4.0 g/dL (3.5-5.2) 01/26/25 09:35 Globulin 3.0 g/dL (1.3-4.6) 01/26/25 09:35 Lipase 13 U/L (13-60) 01/26/25 09:35 All radiology interpretation(s) finalized by discharge Discharge Plan Discharge Patient Disposition: Placed in Observation Clinical Impression: Acute exacerbation of chronic obstructive pulmonary disease Discharge Diet: Advance as tolerated Discharge Activity: Resume usual activity Coding Level of Care Code ED Hospice Care Sales Consultant for Ev Willis
[2025-01-26 10:01] LABS: Hematocrit 54.6 % (37-53); Hemoglobin 18.10 g/dL (11.27-16.99); Mean Corpuscular HGB Conc 33.2 g/dL (30-55); Mean Corpuscular Hemoglobin 31.7 pg (27-33); Mean Corpuscular Volume 95.6 fl (82-101); Nucleated Red Blood Cells % 0 %; Platelet Count 302 10^3/cmm (157-399); Red Blood Count 5.71 10^6/uL (3.85-5.65); White Blood Count 19.55 10^3/uL (3.29-11.43)
[2025-01-26] MEDS: methylPREDNISolone sod succ 125 mg/2 mL INJ IVP (10:15)
[2025-01-26 10:17] LABS: Troponin(5th) Baseline 17 ng/L (0-15)
[2025-01-26 10:28] LABS: Alanine Aminotransferase 9 U/L (0-41); Albumin Level 4.0 g/dL (3.5-5.2); Alkaline Phosphatase 130 U/L (40-130); Anion Gap 16.3 (5-19); Aspartate Amino Transferase 9 U/L (0-40); Blood Urea Nitrogen 13 mg/dL (8-23); Calcium 9.8 mg/dL (8.5-10.5); Carbon Dioxide 33 mmol/L (22-29); Chloride 101 mmol/L (98-107); Creatinine Clr Calc Pharmacy 97.8653; Globulin 3.0 g/dL (1.3-4.6); Glucose 155 mg/dL (65-115); Lipase 13 U/L (13-60); NT Pro B Type Natriuretic Pept 390 pg/mL (0-125); Osmolality Calculated 305 mOsm/kg (285-295); Potassium 4.3 mmol/L (3.5-5.1); Sodium 146 mmol/L (136-145); Total Protein 7.0 g/dL (6.6-8.7)
--- NOTE | 2025-01-26 11:31 | ECG_ITS ---
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
[2025-01-26 12:01] LABS: Troponin 5 2HR 15.80 ng/L (0-15)
[2025-01-26 12:05] LABS: Troponin 5 2HR Delta -1.20 ABS# (0-10)
[2025-01-26 13:02] LABS: ABG PCO2 59.3 mmHg (35-45); ABG PH Result 7.39 (7.35-7.45); Alveolar-Arterial Oxygen Gradi 1.9 mmHg (5-10); Arterial Blood Gas Hematocrit 54.0 % (42-52); Blood Gas Allen Test Pos; Blood Gas LPM 2.5 %; Blood Gas Operator Identificat MONRO; Blood Gas Sample Site Radial, right; Blood Gas Sample Type Arterial; Carboxyhemoglobin 3.4 %THgb (0.4-20.1); Glucose Level-ABG 111.0 mg/dL (70-115); HCO3 ABG 35.7 mmol/L (22-26); Ionized Calcium Level - ABG 1.2 mmol/L (1.1-1.4); Methemoglobin 0.8 % (0.4-1.5); Oxygen Saturation ABG 91.5; PO2 ABG 63.4 mmHg (80.0-100.0); PO2 FiO2 Ratio Arterial Blood 3170; Potassium Level - ABG 3.8 mmol/L (3.5-5.0); Sodium Level - ABG 146.0 mmol/L (131-143)
[2025-01-26 13:04] LABS: Lactic Sepsis W/Reflex 1.4 mmol/L (0.5-2.2)
[2025-01-26 13:48] LABS: Magnesium 2.0 mg/dL (1.7-2.3)
[2025-01-26 13:55] LABS: Procalcitonin 0.03 ng/mL (0-0.5)
[2025-01-26] MEDS: cefTRIAXone 1,000 mg SDV 1000 MG IVP (13:57)
[2025-01-26 14:48] LABS: Lactic Sepsis W/Reflex 1.0 mmol/L (0.5-2.2)
--- NOTE | 2025-01-26 15:13 | PM.HP ---
Providers/Chief Complaint Admitting Physician: Donta Jung MD Primary Care Provider: MATT Coronado Chief Complaint: SOB CP History of Present Illness Eligio Resendiz is a 64 year old male has a long smoking history. He has known COPD and nocturnal hypoxemia. 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 History of neuropathy and tingling secondary to polycythemia of the hand/arm and neck on and off. Came to the emergency department with shortness of breath not associate with exertion or any significant lower limb edema. No history of fever or chills increase in cough or sputum production. No orthopnea PND chest pain chest heaviness dizziness abdominal pain diarrhea or any skin rash. However he was on antibiotics from the last week and steroids for his COPD exacerbation that did not relieve until this admission that were sent to have him come to ER. The patient did not recall any recent vaccinations, travel or sick contacts Still actively smoking I have discussed the goals of life with the patient and he preferred to be DNR. Rest of the review of system unremarkable Review of Systems General: Reports: 10 or more systems reviewed and unremarkable except in HPI and below Resp: Reports: dyspnea and wheezing Medications/Allergies Home Medications ?Medication ?Instructions ?Recorded ?Confirmed ?Last Taken ?Type aspirin 325 mg tablet 325 mg PO DAILY #90 tabs 12/28/22 01/26/25 01/21/25 Rx oxygen 2L via NC with activity #1 ea 10/26/23 01/26/25 Unknown Rx albuterol sulfate 90 mcg/actuation 2 inh inhalation Q6H PRN shortness 05/16/24 01/26/25 01/26/25 Rx aerosol inhaler of breath or wheezing #8.5 grams doxycycline hyclate 100 mg capsule 100 mg PO BID 01/26/25 01/26/25 Unknown History prednisone 20 mg tablet 40 mg PO QAM 01/26/25 01/26/25 Unknown History tiotropium bromide 2.5 2 puff inhalation DAILY PRN 01/26/25 01/26/25 Unknown History mcg/actuation mist for inhalation Shortness Of Breath (Spiriva Respimat) Allergies Allergy/AdvReac Type Severity Reaction Status Date / Time grass pollen Allergy Severe ALGY-Hives Verified 08/15/24 13:58 corn Allergy ALGY-Difficulty Verified 08/15/24 13:58 Breathing PFSH Acute PFSH: Medical History (Updated 01/26/25 @ 15:23 by Donta Jung MD) COPD (chronic obstructive pulmonary disease) Enrolled in chronic care management Pulmonary emphysema Seasonal allergic rhinitis Osteoarthritis of right shoulder COPD (chronic obstructive pulmonary disease) with acute bronchitis Osteoarthritis of spine Surgical History Hx of cervical spine surgery Family History Father Heart disease Mother Heart disease Brother Heart disease Brother Renal cancer Social History Smoking and tobacco/nicotine status: never used tobacco/nicotine Second hand smoke exposure: Yes Alcohol intake: current Alcohol type: beer Substance/Drug Use: never Lives independently: Yes Household members: family Marital status: Current gender identity: Male Vitals/I&O/Wt Last Vital Signs Pulse 82 01/26/25 14:05 Resp 18 01/26/25 12:58 BP 180/107 01/26/25 12:38 Pulse Ox 93 01/26/25 14:05 O2 Del Method Oxymask 01/26/25 12:58 O2 Flow Rate 6 01/26/25 13:05 FiO2 35 01/26/25 14:05 Weight last 48 hrs Weight 79.379 kg Physical Exam Narrative: General: Alert oriented x3, patient seen lying with mild respiratory distress with oxygen mask 6 L/min, able to complete full sentences. No use of accessory muscles or any intercostal recession or supraclavicular recessions HEENT: Normocephalic, atraumatic, EOMI, breathing with oxygen supplementation Cardio: Regular rate rhythm, normal S1-S2, no murmurs rubs gallops, JVD normal Respiratory: Bilateral equal entry with bilateral multiple diffuse wheezes and mild coarse crackles. No stridor or any evidence of half-strength breath sounds GI: Abdomen soft, nontender, nondistended, normoactive bowel sounds present all 4 quadrants, Neuro: Cranial nerves II to XII intact, strength 5/5, sensation 5/5, no gross neurological deficit Behavior: Appropriate and cooperative Extremities: Trace pedal edema Skin: Visible skin intact, no rashes Data 01/26/25 09:35 01/26/25 09:35 A&P Assessment and plan 1. Sepsis with acute hypercapnic respiratory failure without septic shock, due to unspecified organism: 2. Acute exacerbation of chronic obstructive pulmonary disease: 3. Polycythemia: 4. Chronic low back pain: 5. Hypertension: 6. Left shoulder pain: 7. Acute hypercapnic respiratory failure: 8. Acute hypoxemic respiratory failure: Plan: Eligio Resendiz is a 64 year old male has a long smoking history. He has known COPD and nocturnal hypoxemia. 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 - Sepsis workup, Blood cultures, lactate urine analysis and cultures -Considering patient hypoxemia and polycythemia, to rule out pulmonary embolism by CT angio and troponins -DuoNebs scheduled 4 hourly -Methylprednisolone 60 mg IV daily -Antibiotic coverage with azithromycin and ceftriaxone -Aspirin 325 mg daily for secondary polycythemia as per the previous oncology note -VTE prophylaxis with enoxaparin -Adequate analgesia -Oxygen supplementation protocol, an IV and repeat blood gas for resolution of hypercapnia and improvement of hypoxemia to follow PDMP PDMP Reviewed: Not Reviewed Attestations Medical Necessity Statement*: The patient will need more than 2 midnight stay for the management of his acute on chronic COPD exacerbation requiring oxygen supplementation and management of sepsis with further diagnostic workups Time Spent in Patient Care: Greater than 35 minutes (>than 50% of time spent in counselling and/or direct pt care on unit). Other Attestations: Patient condition has been discussed at length with the patient and the family, I have independently reviewed the chart labs imaging and diagnostics and EKG.? The patient has been informed about her current condition and further plan of care.? Agreed with the plan of care and understood without any language barrier. This documentation was created by [employer] stamp mounter software. Every effort was made to ensure accuracy of stamp mounter.? Any obvious errors or omissions should be clarified with the author of the document. Coding Level of Care Code 36169 Diagnoses Sepsis with acute hypercapnic respiratory failure without septic shock, due to unspecified organism A41.9; R65.20; J96.02 Sepsis type: sepsis due to unspecified organism Sepsis acute organ dysfunction status: with acute organ dysfunction Acute respiratory failure type: with hypercapnia Severe sepsis shock status: without septic shock Severe sepsis acute organ dysfunction type: acute respiratory failure Acute exacerbation of chronic obstructive pulmonary disease J44.1 Polycythemia D75.1 Chronic low back pain M54.50; G89.29 Hypertension I10 Left shoulder pain M25.512 Acute hypercapnic respiratory failure J96.02 Acute hypoxemic respiratory failure J96.01 Time Spent (min) 40
--- NOTE | 2025-01-26 15:24 | CTR_ITS ---
PROCEDURE INFORMATION: Exam: CTA Chest With Contrast Exam date and time: 01/26/2025 3:55 PM Age: 64 years old Clinical indication: Hyperventilation; Additional info: Acute hypxemic resp failure TECHNIQUE: Imaging protocol: Computed tomographic angiography of the chest with contrast. Exam focused on the arteries. 3D rendering (Not supervised by radiologist): MIP and/or 3D reconstructed images were created by the technologist. Radiation optimization: All CT scans at this facility use at least one of these dose optimization techniques: automated exposure control; mA and/or kV adjustment per patient size (includes targeted exams where dose is matched to clinical indication); or iterative reconstruction. Contrast material: OMNIPAQUE 350; Contrast volume: 72 ml; Contrast route: INTRAVENOUS (IV); COMPARISON: CR (CHEST, ) 01/26/2025 9:54 AM RADIATION DOSE METRICS: Total DLP (mGy-cm): 381.07 FINDINGS: Pulmonary arteries: No pulmonary embolism. Aorta: Mild calcified atherosclerotic changes are seen in the thoracic aorta. Lungs: Bronchiectasis is seen bilaterally. Mild emphysematous changes in the left upper lobe. Pleural spaces: Unremarkable. No pneumothorax. No pleural effusion. Heart: Unremarkable. No cardiomegaly. No pericardial effusion. Coronary arteries: Coronary calcifications are seen. Lymph nodes: Shotty mediastinal lymph nodes. Bones/joints: Chronic left-sided rib fracture posteriorly. Soft tissues: Unremarkable. Other findings: Scrub; Bilateral diffuse branching nodular lesions are seen. CT/CT angio chest PE protcl 63092 IMPRESSION: 1. No pulmonary embolism. 2. Bronchiectasis is seen bilaterally. 3. Bilateral diffuse branching nodular lesions are seen. Finding could represent small airway infection. Imaging follow-up is advised. 4. Mild emphysematous changes in the left upper lobe. 5. Coronary calcifications. 6. Mild calcified atherosclerotic changes are seen in the thoracic aorta. COMMENTS: The presence of pulmonary emphysema on CT is an independent risk factor for lung cancer. In the absence of a history or active diagnosis of lung cancer, it is recommended that this patient with emphysema be evaluated for enrollment in a low dose CT lung cancer screening program.
--- NOTE | 2025-01-26 15:25 | ECG_ITS ---
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 Measurements Intervals [place] Rate: 74 P: 65 [place]: 118 QRS: 75 QRSD: 92 T: 78 QT: 388 QTc: 432 Interpretive Statements SINUS RHYTHM WITH SHORT [place] INTERVAL WITH OCCASIONAL VENTRICULAR PREMATURE COMPLEXES POSSIBLE LEFT ATRIAL ENLARGEMENT [-0.1mV P-WAVE IN V1/V2] Compared to ECG 01/26/2025 11:31:58 Ventricular premature complex(es) now present Short [place] interval now present Electronically Signed On 01-29-2025 08:19:16 CDT by Bya Jordan M.D. [email or web address] [id number]
[2025-01-26] MEDS: iohexol 350 mg/mL 500 mL Btl (per mL) IV (16:06)
[2025-01-26 16:31] LABS: ABG PCO2 53.9 mmHg (35-45); ABG PH Result 7.41 (7.35-7.45); Alveolar-Arterial Oxygen Gradi 15.7 mmHg (5-10); Arterial Blood Gas Hematocrit 52.5 % (42-52); Blood Gas Allen Test Pos; Blood Gas LPM 2.5 %; Blood Gas Operator Identificat MONRO; Blood Gas Sample Site Radial, left; Blood Gas Sample Type Arterial; Carboxyhemoglobin 2.7 %THgb (0.4-20.1); Glucose Level-ABG 137.0 mg/dL (70-115); HCO3 ABG 34.1 mmol/L (22-26); Ionized Calcium Level - ABG 1.2 mmol/L (1.1-1.4); Methemoglobin 0.9 % (0.4-1.5); Oxygen Saturation ABG 89.2; PO2 ABG 56.0 mmHg (80.0-100.0); PO2 FiO2 Ratio Arterial Blood 164; Potassium Level - ABG 3.8 mmol/L (3.5-5.0); Sodium Level - ABG 145.0 mmol/L (131-143)
--- OUTSIDE RECORDS SUMMARY | 2025-01-26 17:03 | XMS_ITS | Clinical Summary ---
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
[2025-01-26 19:55] LABS: Glucose Urine UA Negative (Normal); Nitrate Urine Negative (Negative)
[2025-01-26 20:00] LABS: Add Urine Microscopic? YES
[2025-01-26 20:02] LABS: Specific Gravity, Urine 1.059 (1.005-1.030)
--- NOTE | 2025-01-26 21:25 | ECG_ITS ---
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1960 Requested By: Donta Jung Order Number: [id number] Reading MD: LARRY ISIDRO Measurements Intervals [place] Rate: 91 P: 45 [place]: 152 QRS: 78 QRSD: 146 T: 55 QT: 381 QTc: 469 Interpretive Statements SINUS RHYTHM RIGHT BUNDLE BRANCH BLOCK [120+ ms QRS DURATION, UPRIGHT V1, 40+ ms S IN I/aVL/V4/V5/V6] INTERPRETATION BASED ON A DEFAULT AGE OF 40 YEARS Compared to ECG 01/26/2025 15:50:52 Right bundle-branch block now present Ventricular premature complex(es) no longer present Short [place] interval no longer present Electronically Signed On 01-29-2025 20:08:31 CDT by LARRY ISIDRO [email or web address] [id number]
[2025-01-27] VITALS (17 sets, daily range): BP systolic 116–177; BP diastolic 69–109; PULSE 74–101; RESP 17–31; TEMP 36.7–37.1; O2SAT 89–97
[2025-01-27 02:34] LABS: Hematocrit 46.7 % (37-53); Hemoglobin 15.10 g/dL (11.27-16.99); Mean Corpuscular HGB Conc 32.3 g/dL (30-55); Mean Corpuscular Hemoglobin 30.6 pg (27-33); Mean Corpuscular Volume 94.5 fl (82-101); Nucleated Red Blood Cells % 0 %; Platelet Count 286 10^3/cmm (157-399); Red Blood Count 4.94 10^6/uL (3.85-5.65); White Blood Count 16.88 10^3/uL (3.29-11.43)
[2025-01-27 02:50] LABS: Lactic Sepsis W/Reflex 1.2 mmol/L (0.5-2.2)
[2025-01-27 02:51] LABS: Alanine Aminotransferase 8 U/L (0-41); Albumin Level 3.4 g/dL (3.5-5.2); Alkaline Phosphatase 106 U/L (40-130); Anion Gap 11.0 (5-19); Aspartate Amino Transferase 8 U/L (0-40); Blood Urea Nitrogen 17 mg/dL (8-23); Calcium 8.9 mg/dL (8.5-10.5); Carbon Dioxide 34 mmol/L (22-29); Chloride 105 mmol/L (98-107); Creatinine Clr Calc Pharmacy 86.9914; Globulin 2.6 g/dL (1.3-4.6); Glucose 107 mg/dL (65-115); Osmolality Calculated 304 mOsm/kg (285-295); Potassium 4.0 mmol/L (3.5-5.1); Sodium 146 mmol/L (136-145); Total Protein 6.0 g/dL (6.6-8.7)
--- NOTE | 2025-01-27 08:10 | P.PN_ITS ---
Subjective 2 Subjective: The patient was seen in the morning. He was on OxyMask with 4 L nasal cannula oxygen supplementation and saturating 94% and above. Patient is able to complete full sentences not looking in distress and not using any accessory muscles. Still wheezing while speaking however able to cooperate and oriented and alert to time place and person Vitals/I&O/Wt Last Vital Signs Temp 98.5 F 01/27/25 07:36 Pulse 86 01/27/25 07:36 Resp 30 H 01/27/25 07:36 BP 164/109 01/27/25 07:36 Pulse Ox 94 01/27/25 07:36 O2 Del Method Oxymask 01/27/25 07:36 O2 Flow Rate 4 01/27/25 07:36 FiO2 35 01/26/25 14:05 01/26/25 01/27/25 01/27/25 22:59 06:59 14:59 Intake Total 1500 / 1500 240 / 1740 Output Total 400 / 400 400 / 800 Balance 1100 / 1100 -160 / 940 Weight last 48 hrs Weight 79.742 kg Weight 79.379 kg Weight 79.379 kg Physical Exam 2 Narrative: General: Alert oriented x3, patient seen lying with without respiratory distress with oxygen mask for L/min, able to complete full sentences. The patient has a dusky appearance. No use of accessory muscles or any intercostal recession or supraclavicular recessions HEENT: Normocephalic, atraumatic, EOMI, breathing with oxygen supplementation Cardio: Regular rate rhythm, normal S1-S2, no murmurs rubs gallops, JVD normal Respiratory: Bilateral diffuse wheezes and mild crepitations. No stridor or any evidence of half-strength breath sounds GI: Abdomen soft, nontender, nondistended, normoactive bowel sounds present all 4 quadrants, Neuro: Cranial nerves II to XII intact, strength 5/5, sensation 5/5, no gross neurological deficit Behavior: Appropriate and cooperative Extremities: Trace pedal edema Skin: Visible skin intact, no rashes Data 01/27/25 01:50 01/27/25 01:50 Micro: Microbiology 01/26/25 17:04 Blood Culture - Preliminary Blood SPECIMEN COLLECTED 01/26/25 14:29 Blood Culture - Preliminary Blood SPECIMEN COLLECTED A&P Assessment and plan 1. Sepsis with acute hypercapnic respiratory failure without septic shock, due to unspecified organism: 2. Acute exacerbation of chronic obstructive pulmonary disease: 3. Polycythemia: 4. Chronic midline low back pain without sciatica: 5. Hypertension: 6. Left shoulder pain: 7. Acute hypercapnic respiratory failure: 8. Acute hypoxemic respiratory failure: Plan: Eligio Resendiz is a 64 year old male has a long smoking history. He has known COPD and nocturnal hypoxemia. 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 as PRISCILLA stat mutation analysis was negative in the past labs as of now: lactate repeat is better and no prelim blood cultures growth so far, CTA ruled out PE Plan: -DuoNebs scheduled 4 hourly with respiratory and albuterol every 2 hourly as needed -Methylprednisolone 60 mg iv daily for minimum 5 days and then to clinically reassess -stat ABG to monitor for hypercapnia as the patient is well compensated with normal PH and high bicarb -continue Antibiotic coverage with azithromycin for 3 days and ceftriaxone -Send for Legionella and respiratory viral panel -Sputum culture -Aspirin 325 mg daily for secondary polycythemia as per the previous oncology note -VTE prophylaxis with enoxaparin -Adequate analgesia -Oxygen supplementation protocol and NIV/BiPAP as needed for COPD exacerbation based on ABGs and patient clinical assessment, NIV/BiPAP standby PDMP PDMP Reviewed: Not Reviewed Attestations 2 Medical Necessity Statement*: Eligio Resendiz's hospital stay will require greater than 2 midnights for management of acute COPD exacerbation, acute hypoxemic and hypercapneic failure Time Spent in Patient Care: Greater than 35 minutes (>than 50% of time spent in counselling and/or direct pt care on unit) . Other Attestations: Patient condition has been discussed at length with the patient/family, I have independently reviewed the chart labs imaging and diagnostics and EKG. The patient/family has been informed about the current condition and further plan of care. Agreed with the plan of care and understood without any language barrier. This documentation was created by [email or web address] humanities and languages professor software. Every effort was made to ensure accuracy of humanities and languages professor. Any obvious errors or omissions should be clarified with the author of the document. Coding Level of Care Code 35826 Diagnoses Sepsis with acute hypercapnic respiratory failure without septic shock, due to unspecified organism A41.9; R65.20; J96.02 Acute respiratory failure type: with hypercapnia Sepsis acute organ dysfunction status: with acute organ dysfunction Sepsis type: sepsis due to unspecified organism Severe sepsis acute organ dysfunction type: acute respiratory failure Severe sepsis shock status: without septic shock Acute exacerbation of chronic obstructive pulmonary disease J44.1 Polycythemia D75.1 Chronic midline low back pain without sciatica M54.50; G89.29 Back pain laterality: midline Sciatica presence: without sciatica Hypertension I10 Left shoulder pain M25.512 Acute hypercapnic respiratory failure J96.02 Acute hypoxemic respiratory failure J96.01 Time Spent (min) 40
[2025-01-27] MEDS: methylPREDNISolone sod succ 40 mg/mL INJ IVP (09:14)
[2025-01-27 09:15] LABS: ABG PCO2 59.9 mmHg (35-45); ABG PH Result 7.39 (7.35-7.45); Alveolar-Arterial Oxygen Gradi 14.6 mmHg (5-10); Arterial Blood Gas Hematocrit 51.8 % (42-52); Blood Gas Allen Test Pos; Blood Gas LPM 4.0 %; Blood Gas Operator Identificat BROMA; Blood Gas Sample Site Radial, left; Blood Gas Sample Type Arterial; Carboxyhemoglobin 1.2 %THgb (0.4-20.1); Glucose Level-ABG 94.0 mg/dL (70-115); HCO3 ABG 36.2 mmol/L (22-26); Ionized Calcium Level - ABG 1.3 mmol/L (1.1-1.4); Methemoglobin 1.0 % (0.4-1.5); Oxygen Saturation ABG 94.2; PO2 ABG 72.6 mmHg (80.0-100.0); PO2 FiO2 Ratio Arterial Blood 201; Potassium Level - ABG 3.8 mmol/L (3.5-5.0); Sodium Level - ABG 145.0 mmol/L (131-143)
[2025-01-27] MEDS: cefTRIAXone 1,000 mg SDV 1000 MG IVP (13:02)
[2025-01-27] MEDS: methylPREDNISolone sod succ 125 mg/2 mL INJ 60 MG IVP (14:51)
[2025-01-27 15:09] LABS: Coronavirus 229E,HKU1,NL63,OC4 Not Detected (NOT DETECT); Parainfluenza Virus Type 1 Not Detected (NOT DETECT); Parainfluenza Virus Type 2 Not Detected (NOT DETECT); Parainfluenza Virus Type 3 Not Detected (NOT DETECT); Parainfluenza Virus Type 4 Not Detected (NOT DETECT); SARS-COV-2 Not Detected (NOT DETECT)
[2025-01-28 03:10] LABS: Hematocrit 49.1 % (37-53); Hemoglobin 16.00 g/dL (11.27-16.99); Mean Corpuscular HGB Conc 32.6 g/dL (30-55); Mean Corpuscular Hemoglobin 31.2 pg (27-33); Mean Corpuscular Volume 95.7 fl (82-101); Nucleated Red Blood Cells % 0 %; Platelet Count 254 10^3/cmm (157-399); Red Blood Count 5.13 10^6/uL (3.85-5.65); White Blood Count 16.85 10^3/uL (3.29-11.43)
[2025-01-28 03:30] LABS: Alanine Aminotransferase 10 U/L (0-41); Albumin Level 3.6 g/dL (3.5-5.2); Alkaline Phosphatase 97 U/L (40-130); Anion Gap 10.7 (5-19); Aspartate Amino Transferase 8 U/L (0-40); Blood Urea Nitrogen 17 mg/dL (8-23); Calcium 9.4 mg/dL (8.5-10.5); Carbon Dioxide 36 mmol/L (22-29); Chloride 101 mmol/L (98-107); Creatinine Clr Calc Pharmacy 98.0569; Globulin 2.8 g/dL (1.3-4.6); Glucose 122 mg/dL (65-115); Osmolality Calculated 299 mOsm/kg (285-295); Potassium 4.7 mmol/L (3.5-5.1); Sodium 143 mmol/L (136-145); Total Protein 6.4 g/dL (6.6-8.7)
[2025-01-28 04:00] VITALS: BP 137/85; PULSE 76; RESP 18; TEMP 36.6; O2SAT 94
[2025-01-28 05:28] VITALS: BMI 24.3
[2025-01-28 07:50] VITALS: BP 163/95; PULSE 83; RESP 22; TEMP 36.8; O2SAT 96
[2025-01-28 08:06] VITALS: PULSE 98; RESP 18; O2SAT 95
[2025-01-28 08:19] VITALS: PULSE 95
--- NOTE | 2025-01-28 08:48 | P.PN_ITS ---
Subjective 2 Subjective: The patient was seen in the morning. He was on OxyMask with 4 L nasal cannula oxygen supplementation and saturating 94% and above. Patient is able to complete full sentences not looking in distress and not using any accessory muscles. Still wheezing while speaking however able to cooperate and oriented and alert to time place and person Vitals/I&O/Wt Last Vital Signs Temp 98.2 F 01/28/25 07:50 Pulse 95 01/28/25 08:19 Resp 18 01/28/25 08:06 BP 163/95 01/28/25 07:50 Pulse Ox 95 01/28/25 08:06 O2 Del Method Nasal Cannula 01/28/25 08:06 O2 Flow Rate 4 01/28/25 08:06 FiO2 40 01/27/25 13:19 01/27/25 01/28/25 01/28/25 22:59 06:59 14:59 Intake Total 370 / 610 Output Total 650 / 2100 350 / 2450 Balance -280 / -1490 -350 / -1840 Weight last 48 hrs Weight 74.588 kg Weight 79.742 kg Weight 79.379 kg Weight 79.379 kg Physical Exam 2 Narrative: General: Alert oriented x3, patient seen lying with without respiratory distress with oxygen mask for L/min, able to complete full sentences. The patient has a dusky appearance. No use of accessory muscles or any intercostal recession or supraclavicular recessions HEENT: Normocephalic, atraumatic, EOMI, breathing with oxygen supplementation Cardio: Regular rate rhythm, normal S1-S2, no murmurs rubs gallops, JVD normal Respiratory: Bilateral diffuse wheezes and mild crepitations. No stridor or any evidence of half-strength breath sounds GI: Abdomen soft, nontender, nondistended, normoactive bowel sounds present all 4 quadrants, Neuro: Cranial nerves II to XII intact, strength 5/5, sensation 5/5, no gross neurological deficit Behavior: Appropriate and cooperative Extremities: Trace pedal edema Skin: Visible skin intact, no rashes Data 01/28/25 02:07 01/28/25 02:07 Micro: Microbiology 01/26/25 17:04 Blood Culture - Preliminary Blood NEGATIVE TO DATE 01/26/25 14:29 Blood Culture - Preliminary Blood NEGATIVE TO DATE A&P Assessment and plan 1. Sepsis with acute hypercapnic respiratory failure without septic shock, due to unspecified organism: 2. Acute exacerbation of chronic obstructive pulmonary disease: 3. Polycythemia: 4. Chronic midline low back pain without sciatica: 5. Hypertension: 6. Left shoulder pain: 7. Acute hypercapnic respiratory failure: 8. Acute hypoxemic respiratory failure: Plan: Eligio Resendiz is a 64 year old male has a long smoking history. He has known COPD and nocturnal hypoxemia. 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 as PRISCILLA stat mutation analysis was negative in the past labs as of now: lactate repeat is better and no prelim blood cultures growth so far, CTA ruled out PE found to have entero/rhinovirus infection Plan: -DuoNebs scheduled 4 hourly with respiratory and albuterol every 2 hourly as needed -Methylprednisolone 60 mg iv daily for minimum 5 days and then to clinically reassess -BIPAP as needed for decrease work of breathing -continue Antibiotic coverage with azithromycin for 3 days and ceftriaxone -Send for Legionella and respiratory viral panel -Aspirin 325 mg daily for secondary polycythemia as per the previous oncology note -VTE prophylaxis with enoxaparin -Adequate analgesia -Oxygen supplementation protocol and NIV/BiPAP as needed for COPD exacerbation based on ABGs and patient clinical assessment, NIV/BiPAP standby PDMP PDMP Reviewed: Not Reviewed Attestations 2 Medical Necessity Statement*: Eligio Resendiz's hospital stay will require greater than 2 midnights for management of his acute on chronic COPD exacerbation triggered by rhino virus infection, having polycythemia Time Spent in Patient Care: Greater than 35 minutes (>than 50% of time spent in counselling and/or direct pt care on unit) . 35 min Other Attestations: Patient condition has been discussed at length with the patient/family, I have independently reviewed the chart labs imaging and diagnostics and EKG. I have discussed the goals of care and code status with the patient/family/[facility]/legal representative phlebotomy services, and documented accordingly. The patient/family has been informed about the current condition and further plan of care. Agreed with the plan of care and understood without any language barrier. This documentation was created by [employer] packaging technician software. Every effort was made to ensure accuracy of packaging technician. Any obvious errors or omissions should be clarified with the author of the document. Coding Level of Care Code 62115 Diagnoses Sepsis with acute hypercapnic respiratory failure without septic shock, due to unspecified organism A41.9; R65.20; J96.02 Sepsis type: sepsis due to unspecified organism Sepsis acute organ dysfunction status: with acute organ dysfunction Severe sepsis acute organ dysfunction type: acute respiratory failure Acute respiratory failure type: with hypercapnia Severe sepsis shock status: without septic shock Acute exacerbation of chronic obstructive pulmonary disease J44.1 Polycythemia D75.1 Chronic midline low back pain without sciatica M54.50; G89.29 Back pain laterality: midline Sciatica presence: without sciatica Hypertension I10 Left shoulder pain M25.512 Acute hypercapnic respiratory failure J96.02 Acute hypoxemic respiratory failure J96.01
--- NOTE | 2025-01-28 09:41 | PC.SOCIAL ---
IMM Update Updated pt on IMM. No questions voiced. Provided pt a copy. Initialed, dated, & timed a copy & placed in chart.
[2025-01-28 11:32] VITALS: PULSE 93; RESP 18; O2SAT 94
--- NOTE | 2025-01-28 11:50 | PM.DCS ---
Discharge Providers Date of Admission: 01/26/25 13:23 Date of Discharge: January 28, 2025 Attending Provider at Admission: Donta Jung MD Attending Provider at Discharge: Donta Jung MD Primary Care Provider: MATT Coronado Diagnoses at Discharge Discharge Diagnosis 1. Sepsis with acute hypercapnic respiratory failure without septic shock, due to unspecified organism: 2. Acute exacerbation of chronic obstructive pulmonary disease: 3. Polycythemia: 4. Chronic midline low back pain without sciatica: 5. Hypertension: 6. Left shoulder pain: 7. Acute hypercapnic respiratory failure: 8. Acute hypoxemic respiratory failure: Reason for Visit Reason for Visit: SOB CP Brief History: Eligio Resendiz is a 64 year old male has a long smoking history. He has known COPD and nocturnal hypoxemia. 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 History of neuropathy and tingling secondary to polycythemia of the hand/arm and neck on and off. Came to the emergency department with shortness of breath not associate with exertion or any significant lower limb edema. No history of fever or chills increase in cough or sputum production. No orthopnea PND chest pain chest heaviness dizziness abdominal pain diarrhea or any skin rash. However he was on antibiotics from the last week and steroids for his COPD exacerbation that did not relieve until this admission that were sent to have him come to ER. The patient did not recall any recent vaccinations, travel or sick contacts Still actively smoking. Goals of life were also discussed and the patient CODE STATUS was documented at DNR as per the patient preference. Hospital Course Hospital Course During his hospital stay he was managed as a case of acute on chronic COPD as outpatient, polycythemia and hypertension. He was started on DuoNebs with antibiotic coverage. And respiratory PCR virus panel showed acute infection with entero-/rhinovirus. The patient was started on steroids as well and showed mild improvement. He also required BiPAP to wash of the CO2. His pH was well compensated and he did not deteriorate to the point of intubation. The patient blood pressure was being managed and monitored. Amlodipine and lisinopril was added however still was not optimized. The patient preferred to leave AMA. ?I explained to the patient that the recommended standard medical care inclusive of [e.g., hospitalization, medications, further diagnostic evaluation] carries potential benefits and risks. I also emphasized the potential consequences of premature self-discharge, including clinical deterioration, incomplete treatment, and risk of serious or life-threatening complications.? ?I reviewed available alternatives with the patient, including [e.g., continued observation, admission, outpatient follow-up, medication adherence], and underscored the reasons these would better support health outcomes.? ?The patient acknowledges understanding this discussion and nonetheless declines to continue with medical management at this time.? ?The patient acknowledges comprehension that leaving against medical advice may result in harm, including worsening of the condition and/or other adverse outcomes, and agrees to assume responsibility for that decision.? ?I offered a safe discharge plan, with instructions to seek urgent care if symptoms worsen or new symptoms arise.? ?I encouraged the patient to reconsider and expressed willingness to provide care if they change their mind.? The patient was discharged with short course steroids, antibiotics, nebulizations for COPD exacerbation and antihypertensive medication for uncontrolled blood pressure along with his home medications at home with referral to be followed as outpatient with the nurse practitioners for his condition postdischarge. Physical Exam Narrative: General: Alert oriented x3, patient seen lying with without respiratory distress with oxygen mask with 2-3 L/min, able to complete full sentences. The patient has a dusky appearance. No use of accessory muscles or any intercostal recession or supraclavicular recessions HEENT: Normocephalic, atraumatic, EOMI, breathing with oxygen supplementation Cardio: Regular rate rhythm, normal S1-S2, no murmurs rubs gallops, JVD normal Respiratory: Bilateral diffuse wheezes relatively better than yesterday and no crepitations found. No stridor or any evidence of half-strength breath sounds GI: Abdomen soft, nontender, nondistended, normoactive bowel sounds present all 4 quadrants, Neuro: Cranial nerves II to XII intact, strength 5/5, sensation 5/5, no gross neurological deficit Behavior: Appropriate and cooperative Extremities: Trace pedal edema Skin: Visible skin intact, no rashes Discharge Data Studies Completed and Pending Completed Studies During Hospitalization Category Date Time Status CTA chest [CT angio chest PE protcl [id number]] Stat Cat Scan 01/26/25 15:24 Completed XR chest 1V portable [id number] Stat Exams 01/26/25 09:48 Completed Pending at discharge Category Date Time Status Blood Culture Stat Lab 01/26/25 17:04 Results CBC Auto Diff [Complete Blood Count w/Auto] AM LABS Lab 01/29/25 04:00 Ordered CMP [Comprehensive Metabolic Panel] AM LABS Lab 01/29/25 04:00 Ordered Legionella Antibody Stat Lab 01/27/25 01:50 Received Radiology Impressions Chest X-Ray 01/26/25 09:48 IMPRESSION: 1. No acute pulmonary finding. 2. Hyperinflation of both lung lara. Chest CTA 01/26/25 15:24 IMPRESSION: 1. No pulmonary embolism. 2. Bronchiectasis is seen bilaterally. 3. Bilateral diffuse branching nodular lesions are seen. Finding could represent small airway infection. Imaging follow-up is advised. 4. Mild emphysematous changes in the left upper lobe. 5. Coronary calcifications. 6. Mild calcified atherosclerotic changes are seen in the thoracic aorta. COMMENTS: The presence of pulmonary emphysema on CT is an independent risk factor for lung cancer. In the absence of a history or active diagnosis of lung cancer, it is recommended that this patient with emphysema be evaluated for enrollment in a low dose CT lung cancer screening program. Laboratory Results WBC 16.85 10^3/uL (3.29-11.43) H 01/28/25 02:07 RBC 5.13 10^6/uL (3.85-5.65) 01/28/25 02:07 Hgb 16.00 g/dL (11.27-16.99) 01/28/25 02:07 Hct 49.1 % (37-53) 01/28/25 02:07 MCV 95.7 fl (82-101) 01/28/25 02:07 MCH 31.2 pg (27-33) 01/28/25 02:07 MCHC 32.6 g/dL (30-55) 01/28/25 02:07 RDW 14.5 % (12.1-15.1) 01/28/25 02:07 Plt Count 254 10^3/cmm (157-399) 01/28/25 02:07 MPV 11.5 fL (7.4-10.4) H 01/28/25 02:07 Neut % (Auto) 90.7 % 01/28/25 02:07 Lymph % (Auto) 4.7 % 01/28/25 02:07 [place] % (Auto) 3.3 % 01/28/25 02:07 Eos % (Auto) 0.0 % 01/28/25 02:07 Baso % (Auto) 0.2 % 01/28/25 02:07 Neut # (Auto) 15.27 10^3/uL (1.8-7.7) H 01/28/25 02:07 Lymph # (Auto) 0.8 10^3/uL (0.8-4.8) 01/28/25 02:07 [place] # (Auto) 0.6 10^3/uL (0.2-0.9) 01/28/25 02:07 Eos # (Auto) 0.0 10^3/uL (0.0-0.8) 01/28/25 02:07 Baso # (Auto) 0.0 10^3/uL (0.0-0.1) 01/28/25 02:07 Nucleated RBC % (auto) 0 % 01/28/25 02:07 Nucleated RBCs # 0.0 /100WBC 01/28/25 02:07 Specimen Type Arterial 01/27/25 09:00 Sample Site Radial, left 01/27/25 09:00 ABG pH 7.39 (7.35-7.45) 01/27/25 09:00 ABG pCO2 59.9 mmHg (35-45) H 01/27/25 09:00 ABG pO2 72.6 mmHg (80.0-100.0) L 01/27/25 09:00 ABG PO2/FiO2 Ratio 201 01/27/25 09:00 ABG HCO3 36.2 mmol/L (22-26) H 01/27/25 09:00 ABG O2 Saturation 94.2 01/27/25 09:00 ABG Base Excess 8.4 mmol/L (-2.0-2.0) H 01/27/25 09:00 [place] Test Pos 01/27/25 09:00 A-a O2 Gradient 14.6 mmHg (5-10) H 01/27/25 09:00 Hematocrit 51.8 % (42-52) 01/27/25 09:00 Hgb O2 Saturation 92.2 % (95-100) L 01/27/25 09:00 Carboxyhemoglobin 1.2 %THgb (0.4-20.1) 01/27/25 09:00 Methemoglobin 1.0 % (0.4-1.5) 01/27/25 09:00 Total Hemoglobin 16.9 g/dL (14-18) 01/27/25 09:00 Sodium 145.0 mmol/L (131-143) H 01/27/25 09:00 Potassium 3.8 mmol/L (3.5-5.0) 01/27/25 09:00 Glucose 94.0 mg/dL (70-115) 01/27/25 09:00 Ionized Calcium 1.3 mmol/L (1.1-1.4) 01/27/25 09:00 O2 Delivery Device Nc 01/27/25 09:00 O2 Liters/Min 4.0 % 01/27/25 09:00 FiO2 36.0 % 01/27/25 09:00 Trimming Inspector ID [place] 01/27/25 09:00 Sodium 143 mmol/L (136-145) 01/28/25 02:07 Potassium 4.7 mmol/L (3.5-5.1) 01/28/25 02:07 Chloride 101 mmol/L (98-107) 01/28/25 02:07 Carbon Dioxide 36 mmol/L (22-29) H 01/28/25 02:07 Anion Gap 10.7 (5-19) 01/28/25 02:07 BUN 17 mg/dL (8-23) 01/28/25 02:07 Creatinine 0.8 mg/dL (0.7-1.2) 01/28/25 02:07 GFR Calculation 97.3 mL/min (90-130) 01/28/25 02:07 Glucose 122 mg/dL (65-115) H 01/28/25 02:07 Calculated Osmolality 299 mOsm/kg (285-295) H 01/28/25 02:07 Lactic Acid 1.2 mmol/L (0.5-2.2) 01/27/25 01:50 Calcium 9.4 mg/dL (8.5-10.5) 01/28/25 02:07 Magnesium 2.0 mg/dL (1.7-2.3) 01/26/25 11:34 Total Bilirubin 0.2 mg/dL (0.15-1.2) 01/28/25 02:07 AST 8 U/L (0-40) 01/28/25 02:07 ALT 10 U/L (0-41) 01/28/25 02:07 Alkaline Phosphatase 97 U/L (40-130) 01/28/25 02:07 Troponin T Baseline 17 ng/L (0-15) H 01/26/25 09:35 Troponin T 120 Minute 15.80 ng/L (0-15) H 01/26/25 11:34 Delta Troponin T -1.20 ABS# (0-10) L 01/26/25 11:34 NT-Pro-B Natriuret Pep 390 pg/mL (0-125) H 01/26/25 09:35 Total Protein 6.4 g/dL (6.6-8.7) L 01/28/25 02:07 Albumin 3.6 g/dL (3.5-5.2) 01/28/25 02:07 Globulin 2.8 g/dL (1.3-4.6) 01/28/25 02:07 Lipase 13 U/L (13-60) 01/26/25 09:35 Procalcitonin 0.03 ng/mL (0-0.5) 01/26/25 11:34 Urine Color Yellow (Yellow) 01/26/25 19:45 Urine Appearance Clear (CLEAR) 01/26/25 19:45 Urine pH 5.0 (5-7) 01/26/25 19:45 Ur Specific [place] 1.059 (1.005-1.030) H 01/26/25 19:45 Urine Protein Negative (Negative) 01/26/25 19:45 Urine Glucose (UA) Negative (Normal) 01/26/25 19:45 Urine Ketones Negative (Negative) 01/26/25 19:45 Urine Blood Negative (Negative) 01/26/25 19:45 Urine Nitrate Negative (Negative) 01/26/25 19:45 Urine Bilirubin Negative (Negative) 01/26/25 19:45 Urine Urobilinogen 1.0 mg/dL (Negative) 01/26/25 19:45 Ur Leukocyte Esterase Negative (Negative) 01/26/25 19:45 Urine RBC 0-2 /hpf (0-2) 01/26/25 19:45 Urine WBC 0-5 /hpf (0-5) 01/26/25 19:45 Ur Squamous Epith Cells 0-5 /hpf (0-5) 01/26/25 19:45 Amorphous Sediment Not Reportable 01/26/25 19:45 Urine Bacteria None seen /hpf (NONE) 01/26/25 19:45 Hyaline Casts 0-4 /lpf H 01/26/25 19:45 Adenovirus (PCR) Not detected (NOT DETECT) 01/27/25 12:45 C. pneumoniae DNA (PCR) Not detected (NOT DETECT) 01/27/25 12:45 Coronavirus 229E (PCR) Not detected (NOT DETECT) 01/27/25 12:45 Human Metapneumovir PCR Not detected (NOT DETECT) 01/27/25 12:45 Influenza A (H1) PCR Not detected (NOT DETECT) 01/27/25 12:45 Influ A (H1/09) PCR Not detected (NOT DETECT) 01/27/25 12:45 Influenza A (H3) PCR Not detected (NOT DETECT) 01/27/25 12:45 Influenza Type A (PCR) Not detected (NOT DETECT) 01/27/25 12:45 Influenza Type B (PCR) Not detected (NOT DETECT) 01/27/25 12:45 M. pneumoniae (PCR) Not detected (NOT DETECT) 01/27/25 12:45 Parainfluenza 1 (PCR) Not detected (NOT DETECT) 01/27/25 12:45 Parainfluenza 2 (PCR) Not detected (NOT DETECT) 01/27/25 12:45 Parainfluenza 3 (PCR) Not detected (NOT DETECT) 01/27/25 12:45 Parainfluenza 4 (PCR) Not detected (NOT DETECT) 01/27/25 12:45 RSV Type A (PCR) Not detected (NOT DETECT) 01/27/25 12:45 RSV Type B (PCR) Not detected (NOT DETECT) 01/27/25 12:45 Entero/Rhino (PCR) Detected (NOT DETECT) A 01/27/25 12:45 SARS-CoV-2 (PCR) Not detected (NOT DETECT) 01/27/25 12:45 Vitals Last Vital Signs Temp 98.2 F 01/28/25 07:50 Pulse 93 01/28/25 11:32 Resp 18 01/28/25 11:32 BP 163/95 01/28/25 07:50 Pulse Ox 94 01/28/25 11:32 O2 Del Method Nasal Cannula 01/28/25 11:32 O2 Flow Rate 4 01/28/25 11:32 FiO2 40 01/27/25 13:19 Discharge Plan Discharge Patient Disposition: Home Condition: Stable Prescriptions: New alum-mag hydroxide-simeth [Mag-Al Plus] 200-200-20 mg/5 mL Suspension 15 ml PO Q6H PRN (Reason: Indigestion) 120 Days Qty: 5 0RF amlodipine [Norvasc] 10 mg tablet 10 mg PO DAILY 120 Days Qty: 120 0RF lisinopril 5 mg Tablet 5 mg PO BEDTIME 120 Days Qty: 120 0RF levofloxacin 750 mg tablet 750 mg PO DAILY 5 Days Qty: 5 0RF prednisone 20 mg tablet 40 mg PO DAILY 5 Days Qty: 10 0RF Mucinex Cold,Flu,Sore Throat 10-20-650 mg/20 mL liquid 5 ml PO QID PRN (Reason: cough) 10 Days Qty: 180 0RF Continued (DME) oxygen 2L via NC with activity See Rx Instructions .Route .MEDSUPPLY Qty: 1 0RF Rx Instructions: As directed aspirin 325 mg tablet 325 mg PO DAILY Qty: 90 3RF albuterol sulfate 90 mcg/actuation HFA aerosol inhaler 2 inh inhalation Q6H PRN (Reason: shortness of breath or wheezing) Qty: 8.5 5RF Spiriva Respimat 2.5 mcg/actuation mist 2 puff inhalation DAILY PRN (Reason: Shortness Of Breath) Discontinued doxycycline hyclate 100 mg capsule 100 mg PO BID prednisone 20 mg tablet 40 mg PO QAM Discharge Order = DC NOW: Discharge Order (Routine); Ordered 01/28/25 Ordered By: Dotna Jung Other Ambulatory Orders: DME: Oxygen (Order) Location: None Selected Ordered By: Donta Jung Referrals: [facility] [Outside] Alessia Bear MD [Physician, Pulmonology] Tiff Kathleen FNP [Primary Care Provider, Family Practice] - 02/05/25 11:40 am Referral Note: Discharge Diet: Advance as tolerated Discharge Activity: Resume usual activity Patient Instructions: Lisinopril (By mouth), Prednisone (By mouth), Amlodipine (By mouth) (Hypertenipine-2.5, Norvasc, Norliqva), Levofloxacin (By mouth) (Levaquin, Levaquin Leva-darin), Aluminum, Magnesium, and Simethicone Antacid (By mouth) (Almacone,..., COPD (Chronic Obstructive Pulmonary Disease) (DC), Sepsis (DC), COPD Stoplight, Opioid Safety, Patient Portal & Qian Instructions Patient's Health Concerns: After thorough counseling of the patient condition and the risk and benefits of the treatment. The patient preferred to leave AMA. All the management plan and further risk of leaving was discussed with risks and benefits and future complications without deterioration and worsening of his symptoms leading to fatal events like arrhythmia or respiratory distress cardiac arrest or even . The patient understands each and every aspect of leaving AMA and understands without any language barrier. Alternative measures has been also discussed with the patient of staying and continue to be observed with further treatment. And also informed in case of worsening of his condition to come back to ER and seek further medical advice and treatment. He preferred to leave AMA and after thorough discussions and counseling the patient's wishes were respected and witnessed in front of the assigned nurse. AMA form signed accordingly and proceeded with the discharge medications and all referrals Discharge Attestations Time Spent in Discharge Care*: greater than 30 min Specific Discharge Activities: educating patient, educating and/or supporting family/caregiver, discussing with pcp/other providers, discussing with supportive employment case manager/social workers/dc planners, documenting/other paperwork and evaluating patient/reviewing data Time Spent in Smoking Cessation: 3 to 10 minutes Status at Discharge: Cognitive status at discharge: cognitively intact, Behavioral status at discharge: cooperative, Functional status at discharge: independent ambulation, Overall status at discharge: patient is not back to baseline Quality Metrics Clinical Quality Measures [ No reported AMI, CVA or VTE this stay] Coding Level of Care Code 22179 Diagnoses Sepsis with acute hypercapnic respiratory failure without septic shock, due to unspecified organism A41.9; R65.20; J96.02 Acute respiratory failure type: with hypercapnia Sepsis acute organ dysfunction status: with acute organ dysfunction Sepsis type: sepsis due to unspecified organism Severe sepsis acute organ dysfunction type: acute respiratory failure Severe sepsis shock status: without septic shock Acute exacerbation of chronic obstructive pulmonary disease J44.1 Polycythemia D75.1 Chronic midline low back pain without sciatica M54.50; G89.29 Back pain laterality: midline Sciatica presence: without sciatica Hypertension I10 Left shoulder pain M25.512 Acute hypercapnic respiratory failure J96.02 Acute hypoxemic respiratory failure J96.01
== END 2025-01-28 12:41 | disposition home or self-care (01) | DRG 871 ==
LOC: ER 13:18 → CSU 17:01
PROVIDERS: Admitting Provider Student in an Organized Health Care Education/Training Program; Emergency Provider General Practice; PCP Nurse Practitioner Family; Visit Provider Student in an Organized Health Care Education/Training Program
DX: A41.9 Sepsis, unspecified organism (principal); J96.01 Acute respiratory failure with hypoxia; J96.02 Acute respiratory failure with hypercapnia; J44.1 Chronic obstructive pulmonary disease with (acute) exacerbation; R65.20 Severe sepsis without septic shock; D75.1 Secondary polycythemia; G89.29 Other chronic pain; M54.50 Low back pain, unspecified; I10 Essential (primary) hypertension; M25.512 Pain in left shoulder; F17.210 Nicotine dependence, cigarettes, uncomplicated; G62.9 Polyneuropathy, unspecified; Z79.82 Long term (current) use of aspirin; Z79.51 Long term (current) use of inhaled steroids
CPT/HCPCS: 36415; 36600; 71045; 71275; 80051; 80053; 81001; 82330; 82805; 83605; 83690; 83735; 83880; 84145; 84484; 85025; 86713; 87040; 87486; 87581; 87633; 93005; 94640; 94660; 94760; 96365; 96372; 96375; 99291; J0456; J0696; J1650; J2919; J3490; J7030; J7050; J7613; J9999

== ENCOUNTER → 2025-01-31 10:33 | Outpatient (BNVA) | payer MEDICARE, MEDICAID, SELFPAY | PROVIDERS: PCP Nurse Practitioner Family; Visit Provider Internal Medicine Medical Oncology | DX: D75.1 Secondary polycythemia (principal) | CPT/HCPCS: 85025 ==

== ENCOUNTER 2025-02-05 13:15 | Oncology outpatient (recurring) (ONCR) | payer MEDICARE, MEDICAID, SELFPAY ==
[2025-02-05 14:31] VITALS: BP 120/79; PULSE 92; RESP 16; TEMP 36.8; O2SAT 91
== END 2025-02-17 23:59 | disposition home or self-care (01) ==
PROVIDERS: PCP Nurse Practitioner Family; Visit Provider Internal Medicine Medical Oncology
DX: D75.1 Secondary polycythemia (principal)
CPT/HCPCS: 99195